=== PATIENT | male | born 1980 | race American Indian/Alaskan Native ===

== ENCOUNTER 2021-11-03 15:45 | Emergency (ER) | payer OTHER ==
[2021-11-03] MEDS ORDERED: ROCURONIUM 50 MG/5 ML INJ IV ONE ×3 (15:54→19:55)
[2021-11-03] MEDS ORDERED: LORazepam 2 MG/ML VIAL IV ONE (16:22)
[2021-11-03] MEDS ORDERED: ETOMIDATE 20 MG/10 ML INJ IV ONE (16:22)
[2021-11-03] MEDS ORDERED: HALOPERIDOL LACTATE 5 MG/1 ML INJ IM ONE (16:23)
[2021-11-03] MEDS ORDERED: SUCCINYLCHOLINE CHLORIDE 200 MG/10 ML INJ MDV IV ONE (16:23)
--- NOTE | 2021-11-03 16:30 | Emergency Department Report ---
ED Shortness of Breath HPI - General Stated Complaint: RESPIRATORY DISTRESS Time Seen by Provider: 11/03/21 16:18 Source: EMS Mode of arrival: Stretcher Limitations: Altered Mental Status - History of Present Illness Initial Comments: Unknown -[place] male reportedly found by EMS in severe respiratory distress with a trach. Reportedly foam coming out of his trach. Patient pointing at his trach and said he cannot breathe. EMS reportedly had to put trach back in. Patient arrives agitated combative and mildly cyanotic. MD Complaint: shortness of breath -: unknown Severity: moderate Known History Of: other (Trach) Associated Symptoms: orhopnia, diaphoresis Treatments Prior to Arrival: oxygen - Related Data Allergies Allergy/AdvReac Type Severity Reaction Status Date / Time No Known Allergies Allergy Unverified 11/03/21 16:51 ED Review of Systems ROS: Stated complaint: RESPIRATORY DISTRESS Other details as noted in HPI Constitutional: see HPI Eyes: denies: eye pain, eye discharge, vision change ENT: denies: ear pain, throat pain Respiratory: orthopnea, shortness of breath Cardiovascular: dyspnea on exertion Endocrine: no symptoms reported Gastrointestinal: denies: abdominal pain, nausea, diarrhea Skin: denies: rash, lesions Neurological: denies: headache, weakness, paresthesias Psychiatric: denies: anxiety, depression Hematological/Lymphatic: as per HPI ED Past Medical Hx - Past Medical History Previous Medical History?: Yes - Family History Family history: no significant ED Physical Exam - General Limitations: Altered Mental Status General appearance: in distress - Head Head exam: Present: atraumatic, normocephalic - Eye Eye exam: Present: normal appearance, PERRL Pupils: Present: normal accommodation - ENT ENT exam: Present: other (Trach site with bleeding and mucus) - Neck Neck exam: Present: other (Trach) - Respiratory Respiratory exam: Present: respiratory distress (Severe respiratory distress), accessory muscle use - Cardiovascular Cardiovascular Exam: Present: tachycardia - GI/Abdominal GI/Abdominal exam: Present: soft. Absent: distended, tenderness - Extremities Exam Extremities exam: Present: full ROM - Neurological Exam Neurological exam: Present: alert, oriented X3, CN II-XII intact - Psychiatric Psychiatric exam: Present: agitated, anxious - Skin Skin exam: Present: warm ED Course Vital Signs 11/03/21 11/03/21 11/03/21 12:54 13:00 13:16 Pulse Rate 77 91 H 56 L Respiratory 22 22 Rate Blood Pressure 114/68 124/88 Blood Pressure [Left] O2 Sat by Pulse Oximetry 11/03/21 11/03/21 11/03/21 13:30 13:45 15:22 Pulse Rate 61 62 Respiratory 21 16 Rate Blood Pressure 130/100 129/77 129/77 Blood Pressure [Left] O2 Sat by Pulse 100 Oximetry 11/03/21 11/03/21 11/03/21 15:30 15:46 16:00 Pulse Rate 149 H Respiratory 39 H 45 H Rate Blood Pressure 129/77 129/77 215/184 Blood Pressure [Left] O2 Sat by Pulse 92 89 92 Oximetry 11/03/21 11/03/21 11/03/21 16:16 16:30 16:53 Pulse Rate 143 H 154 H 130 H Respiratory 28 H 25 H 34 H Rate Blood Pressure 214/114 166/73 130/100 Blood Pressure [Left] O2 Sat by Pulse 92 96 96 Oximetry 11/03/21 11/03/21 11/03/21 16:55 17:00 17:16 Pulse Rate 128 H 130 H 120 H Respiratory 37 H 28 H 32 H Rate Blood Pressure 108/66 106/58 Blood Pressure 106/79 106/53 [Left] O2 Sat by Pulse 96 97 96 Oximetry 11/03/21 11/03/21 11/03/21 17:30 17:50 17:56 Pulse Rate 118 H 112 H Respiratory 32 H 32 H Rate Blood Pressure 107/51 95/49 Blood Pressure 98/49 [Left] O2 Sat by Pulse 97 99 Oximetry 11/03/21 11/03/21 11/03/21 18:04 18:16 18:17 Pulse Rate 101 H 110 H Respiratory 26 H 30 H Rate Blood Pressure 82/39 80/44 Blood Pressure 80/44 [Left] O2 Sat by Pulse 95 Oximetry 11/03/21 11/03/21 11/03/21 18:30 18:40 18:46 Pulse Rate 99 H 109 H 102 H Respiratory 36 H 37 H 34 H Rate Blood Pressure 104/60 107/51 Blood Pressure 115/67 [Left] O2 Sat by Pulse 84 99 100 Oximetry 11/03/21 19:01 Pulse Rate 103 H Respiratory 35 H Rate Blood Pressure Blood Pressure 89/51 [Left] O2 Sat by Pulse 100 Oximetry ED Medical Decision Making - Lab Data Result diagrams: 11/03/21 16:33 Critical Care Time: Yes Critical care time in (mins) excluding proc time.: 125 Critical care attestation.: If time is entered above; I have spent that time in minutes in the direct care of this critically ill patient, excluding procedure time. Critical Care Time: 125 MINS ED Disposition Clinical Impression: Respiratory failure, Tracheal obstruction Disposition: 02 [facility]ORT [facility] Is pt being admited?: No Does the pt Need Aspirin: No Condition: Critical
[2021-11-03 16:38] LABS: Bilirubin,Urine NEG (Negative); Blood,Urine NEG (Negative); Color,Urine Yellow (Yellow)
[2021-11-03 16:41] LABS: Mucus,Urine FEW /HPF; Urobilinogen,Urine < 2 mg/dL (<2.0)
[2021-11-03 16:46] LABS: Benzodiazepines Screen,Urine Negative; Cannabinoid Screen,Urine Negative; Cocaine Screen,Urine Negative; Methadone Screen,Urine Negative; Opiate Screen,Urine Negative
[2021-11-03] MEDS ORDERED: SODIUM CHLORIDE 0.9% 1000 ML 1,000 ML ONE (16:47)
[2021-11-03 16:55] LABS: Hematocrit 39.5 % (35.5-45.6); Hemoglobin 13.3 gm/dl (11.8-15.2); Mean Corpuscular HGB Conc 34 % (32-34); Mean Corpuscular Volume 85 fl (84-94); Platelet Count 279 K/mm3 (140-440); Red Blood Count 4.66 M/mm3 (3.65-5.03); Red Cell Distribution Width 14.6 % (13.2-15.2)
[2021-11-03 16:59] LABS: Amphetamine Screen,Urine Positive
[2021-11-03 17:05] LABS: ABG Base Excess -4.1 mmol/L (-2.0-3.0); ABG HCO3 24.6 mmol/L (20.0-26.0); ABG Methemoglobin 0.6 % (0.0-1.5); ABG Oxygen Saturation 97.2 % (95.0-99.0); ABG PCO2 61.2 mm Hg; ABG PH 7.222 pH Units (7.350-7.450); ABG PO2 109.3 mm Hg (80.0-90.0)
[2021-11-03 17:29] LABS: Band Neutrophils # (Manual) 0.3 K/mm3; Basophils % (Manual) 0 % (0.0-1.8); Eosinophils % (Manual) 0 % (0.0-4.3); Platelet Estimate Consistent w Auto; RBC Morphology Normal; Total Cells Counted 100
--- NOTE | 2021-11-03 17:33 | XRay Report ---
CHEST 1 VIEW INDICATION: sob. COMPARISON: None FINDINGS: SUPPORT DEVICES: There appears to be a tube in the midline--correlate with history and exam findings. HEART: Within normal limits. LUNGS/PLEURA: Mild patchy multifocal airspace disease with no effusion. ADDITIONAL FINDINGS: None. IMPRESSION: 1. Lung and incidental finding as above. Signer Name: Tuan Patel MD Signed: 11/03/2021 5:29 PM Workstation Name: [id number]
[2021-11-03] MEDS ORDERED: SODIUM CHLORIDE 0.9% 1000 ML 1,000 ML IV ONE (18:03)
[2021-11-03] MEDS: fentaNYL DRIP Premix 1,000 MCG/100 ML BAG IV SCH ×3 (18:53→22:09)
[2021-11-03] MEDS ORDERED: ALBUTEROL 2.5 MG/3 ML NEBU IH ONE (20:32)
[2021-11-03] MEDS ORDERED: methylPREDNISolone Sod Succinate 125 MG/2 ML INJ IV ONE (20:46)
[2021-11-03] MEDS ORDERED: cefTRIAXone/NS 1 GM/50 ML 1 GM/50 ML BAG IV ONE (20:46)
--- NOTE | 2021-11-03 20:52 | Cat Scan Report ---
CT HEAD WITHOUT CONTRAST INDICATION / CLINICAL INFORMATION: donovan. TECHNIQUE: All CT scans at this location are performed using CT dose reduction for ALARA by means of automated e xposure control. COMPARISON: None available. FINDINGS: Limitations: This study is limited secondary to patient motion artifact. HEMORRHAGE: No evidence of intracranial hemorrhage or extra-axial fluid collection. EXTRA-AXIAL SPACES: Cortical sulci, sylvian fissures and basilar cisterns have an unremarkable appear ance. VENTRICULAR SYSTEM: The third and lateral ventricles are of normal size and configuration. CEREBRAL PARENCHYMA: No areas of abnormal brain parenchymal attenuation are identified. There is no i ndication of recent infarction. MIDLINE SHIFT OR HERNIATION: There is no mass effect. CEREBELLUM / BRAINSTEM: Brainstem and cerebellum have an unremarkable appearance. MIDLINE STRUCTURES:No abnormalities of the pituitary gland or pineal region are identified. INTRACRANIAL VESSELS:No abnormalities are identified on this noncontrast head CT. ORBITS: visualized portions of the orbits have an unremarkable appearance. SOFT TISSUES of HEAD: No significant abnormality. CALVARIUM: Evaluation of bone windows reveals no abnormalities. PARANASAL SINUSES / MASTOID AIR CELLS: Visualized portions of the paranasal sinuses are free from inf lammatory mucosal disease. Mastoid air cells are normally pneumatized. IMPRESSION: 1. No significant intracranial abnormality. Signer Name: Samuel Tucker MD Signed: 11/03/2021 8:47 PM Workstation Name: [id number]
--- NOTE | 2021-11-03 21:03 | Cat Scan Report ---
CT NECK WITHOUT INTRAVENOUS CONTRAST AND MULTIPLANAR RECONSTRUCTION CLINICAL HISTORY: SOB disc bulge tracheostomy tube with difficulty encountered during reinsertion. TECHNIQUE: 2.5 mm thick contiguous axial scans were obtained from the skull base down to the aortic arch. In add ition to evaluation of axial source images sagittal and coronal multiplanar reconstructions were prod uced and reviewed for this report. CONTRAST DOSE REPORT:Noncontrast examination. All CT imaging studies performed at this facility utilize dose modulation, iterative reconstruction o r weight based dosing, if appropriate, to obtain the lowest achievable radiation dose. FINDINGS: LIMITATIONS: Patient motion artifact is limiting factor on this examination. AIRWAY: Tracheostomy catheter is in place. The tip of a tracheostomy catheter extends down to the car dhaval and extends towards the right main bronchus. The catheter tip is not included on this study. Base d on comparison to recent chest x-ray it appears that the tracheostomy tube should be withdrawn appro ximately 6 cm. There is hyperinflation of the oropharynx and supraglottic larynx. Patient motion kady fact obscures detail at the level of the vocal cords. There is obstruction of the airway between the level of the true vocal cords and tracheostomy catheter. LYMPH NODES: There is no indication of cervical lymphadenopathy. ORAL CAVITY/FLOOR OF MOUTH: No abnormalities are seen in evaluation of the oral cavity and tongue. Th e floor the mouth has a normal appearance. MAJOR SALIVARY GLANDS: The parotid and submandibular salivary glands have a normal appearance. NASAL CAVITY AND PARANASAL SINUSES: Evaluation of the nasal cavity reveals no abnormality. The parana christian sinuses are free from inflammatory mucosal disease. ORBITS:No abnormalities of the visualized portions of the orbits are identified. Globes, optic nerves , extraocular muscles and lacrimal glands have an unremarkable appearance. THYROID GLAND: The thyroid gland is normal in size and homogeneous in attenuation. No focal thyroid l esions are identified. TEMPORAL BONES:Mastoid air cells are normally pneumatized. CRANIOCERVICAL JUNCTION:No significant abnormality. CERVICAL SPINE: Evaluation of the cervical spine reveals no significant abnormality. Normal alignment is maintained. No significant degenerative changes are identified. LUNG APICES: Confluent infiltrates with air bronchograms are demonstrated in the dependent portions o f both lungs consistent with pneumonia. Consider CT chest for further evaluation. CONTRAST ADMINISTRATION: Enhancement of normal vascular structures is demonstrated. No areas of abnor mal contrast enhancement are identified. IMPRESSION: 1. Tracheostomy catheter extends down into the right main bronchus. Catheter tip is not included on t his study but based on comparison to recent chest radiograph it appears that the tracheostomy cathete r should be withdrawn by about 6 cm to ensure an endotracheal position. 2. There is obstruction of the airway between the vocal cords and tracheostomy catheter. 3. Evidence of bilateral pneumonia. Signer Name: Samuel Tucker MD Signed: 11/03/2021 8:59 PM Workstation Name: [id number]
[2021-11-03 21:54] LABS: Alanine Aminotransferase 34 units/L (7-56); Albumin 4.1 g/dL (3.9-5); BUN/Creatinine Ratio 11; Blood Urea Nitrogen 12 mg/dL (9-20); Calcium 8.9 mg/dL (8.4-10.2); Hemolysis Index 25
[2021-11-03 22:06] VITALS: BP 124/65
--- NOTE | 2021-11-05 10:18 | Electrocardiograph Report ---
[facility] Test Date: 2021-11-03 Test Time: 16:32:50 Pat Name: NARINDER BOTELLO Department: Room: Gender: M Digital Content Producer: [birth year] : [id number] Requested By: MONIQUE BERRY Order Number: [id number] Reading MD: Eddie Fagan Measurements Intervals [place] Rate: 131 P: 61 [place]: 144 QRS: -30 QRSD: 98 T: 122 QT: 311 QTc: 461 Interpretive Statements Sinus tachycardia Left ventricular hypertrophy Nonspecific T abnormalities, lateral leads No previous ECG available for comparison Electronically Signed On 11-05-2021 10:18:09 EDT by Eddie Fagan
== END 2021-11-03 23:50 | disposition short-term general hospital (02) ==
LOC: EDBD → ED 15:45
DX: J96.90 Respiratory failure, unspecified, unspecified whether with hypoxia or hypercapnia (principal); J39.8 Other specified diseases of upper respiratory tract; Z79.899 Other long term (current) drug therapy
CPT/HCPCS: 36415; 70450; 70491; 71045; 80053; 80307; 80320; 81001; 82803; 83880; 84484; 85007; 85025; 87070; 87076; 87186; 87205; 93005; 94002; 94640; 94644; 96365; 96366; 96367; 96375; 99285; 99291; 99292; J3490; G0480; J0696; J2704; J2930; J3010; J7030; Q9967